=== PATIENT | female | born 1955 | race Caucasian/White ===

== ENCOUNTER 2018-01-06 08:42 | Emergency (ER) | payer OTHER ==
[~2018-01-06] VITALS: Ht 157.5 cm; Wt 92.1 kg
[2018-01-06 08:49] VITALS: BP 157/80
--- NOTE | 2018-01-06 08:55 | NUR ---
PATIENT TO BED #11
--- NOTE | 2018-01-06 08:55 | NUR ---
PATIENT PRESENTS TO ED WITH c/o left jaw/neck pain . PT STATES she has been experiencing pain for 2 days now and she feels pain when eating . DENIES N/V/D; SKIN IS PINK/WARM/DRY; AAOX4 WITH EVEN AND STEADY GAIT; LUNGS CLEAR BL; HR EVEN AND REGULAR; PT DENIES ANY FEVER, CP, SOB, OR COUGH AT THIS TIME; PATIENT STATES PAIN OF 5/10 AT THIS TIME; VSS; PATIENT POSITIONED FOR COMFORT; HOB ELEVATED; BEDRAILS UP X2; BED DOWN. ER MD MADE AWARE OF PT STATUS.
[2018-01-06] MEDS ORDERED: KETOROLAC 30 MG/ML VIAL IM ONE (09:20)
[2018-01-06 11:07] VITALS: BP 130/73
--- NOTE | 2018-01-06 11:07 | NUR ---
Patient discharged with v/s stable. Written and verbal after care instructions given and explained. Patient alert, oriented and verbalized understanding of instructions. Ambulatory with steady gait. All questions addressed prior to discharge. ID band removed. Patient advised to follow up with PMD. Rx of VOLTAREN XR given. Patient educated on indication of medication including possible reaction and side effects. Opportunity to ask questions provided and answered.
== END 2018-01-06 11:07 | disposition home or self-care (01) ==
LOC: MED 08:42
DX: K11.8 Other diseases of salivary glands (principal); Z90.710 Acquired absence of both cervix and uterus; Z88.0 Allergy status to penicillin
CPT/HCPCS: 76536; 96372; 99284; J1885; Q0092

== ENCOUNTER 2018-01-26 06:26 | Outpatient (CLI) | payer OTHER ==
[2018-01-26 08:15] LABS: ALBUMIN 3.3 g/dL (3.4-5.0); ANION GAP 12.4 (8-16); CARBON DIOXIDE 24.3 mmol/L (21-32); CHOL/HDL RATIO 3.1 (1-4.5); CREATININE 0.8 mg/dL (0.6-1.3); POTASSIUM 3.7 mmol/L (3.5-5.1); TOTAL BILIRUBIN 0.8 mg/dL (0.0-1.0)
[2018-01-26 08:17] LABS: EOSINOPHILS # (AUTO) 0.1 K/uL (0-0.4); MONOCYTES # (AUTO) 0.3 K/uL (0.8-1.0); MONOCYTES % (AUTO) 6.6 % (1.7-9.3); NEUTROPHILS # (AUTO) 2.8 K/uL (1.8-7.7); PLATELET COUNT (AUTO) 117 K/uL (140-450); WHITE BLOOD COUNT (AUTO) 4.4 K/uL (4.8-10.8)
[2018-01-26 08:35] LABS: BASOPHILS # (AUTO) 0.2 K/uL (0.00-0.22); BASOPHILS % (AUTO) 4.8 % (0.0-2.0); EOSINOPHILS % (AUTO) 1.6 % (0.0-4.0); HEMATOCRIT 43.1 % (36-48); HEMOGLOBIN 14.3 g/dL (12.0-16.0); MEAN CORPUSCULAR HEMOGLOBIN 31 pg (27-31); MEAN CORPUSCULAR HGB CONC 33 g/dL (33-37); MEAN CORPUSCULAR VOLUME 94 fL (80-94); RED BLOOD CELL COUNT(AUTO) 4.61 MIL/uL (4.20-5.40); RED CELL DISTRIBUTION WIDTH 12.9 % (11.6-13.7)
[2018-01-26 08:38] LABS: THYROID STIMULATING HORMONE 3.57 uIU/mL (0.34-3.74)
== END 2018-01-26 18:57 | disposition home or self-care (01) ==
LOC: MLB 06:26
PROVIDERS: ATTEND Internal Medicine Geriatric Medicine
DX: Z00.01 Encounter for general adult medical examination with abnormal findings (principal); R73.03 Prediabetes; E55.9 Vitamin D deficiency, unspecified
CPT/HCPCS: 36415; 80053; 82272; 82306; 83036; 84443; 85025

== ENCOUNTER 2018-02-09 06:23 | Outpatient (CLI) | payer OTHER | END 2018-02-09 20:17 | disposition home or self-care (01) | LOC: MRD 06:23 | PROVIDERS: ATTEND Internal Medicine Geriatric Medicine | DX: M85.88 Other specified disorders of bone density and structure, other site (principal); M12.88 Other specific arthropathies, not elsewhere classified, other specified site | CPT/HCPCS: 72110; 72170 ==

== ENCOUNTER 2019-06-04 06:10 | Emergency (ER) | payer OTHER ==
[~2019-06-04] VITALS: Ht 157.5 cm; Wt 90.7 kg
[2019-06-04 06:12] VITALS: BP 118/60
--- NOTE | 2019-06-04 06:30 | NUR ---
PT REPORTS TO ED WITH PAIN IN EAR AND CHEST X2 DAYS. NON PRODUCTIVE COUGH. ALLERGY TO PENICILLIN. BREATHING SYMETRICAL. DR ASSESSING PT AT BEDSIDE.
[2019-06-04] MEDS ORDERED: IBUPROFEN 600 MG TAB PO ONE (06:35)
[2019-06-04 06:42] VITALS: BP 118/60
--- NOTE | 2019-06-04 06:43 | NUR ---
Patient discharged with v/s stable. Written and verbal after care instructions given and explained. Patient alert, oriented and verbalized understanding of instructions. Ambulatory with steady gait. All questions addressed prior to discharge. ID band removed. Patient advised to follow up with PMD. Rx of DOXYCYCLINE & TESSALON PERLES given. Patient educated on indication of medication including possible reaction and side effects. Opportunity to ask questions provided and answered.
== END 2019-06-04 06:42 | disposition home or self-care (01) ==
LOC: MED 06:10
DX: H66.91 Otitis media, unspecified, right ear (principal); J06.9 Acute upper respiratory infection, unspecified; Z88.0 Allergy status to penicillin
CPT/HCPCS: 99283

== ENCOUNTER 2021-06-21 06:44 | Emergency (ER) | payer OTHER ==
[~2021-06-21] VITALS: Ht 157.5 cm; Wt 90.7 kg
[2021-06-21 06:47] VITALS: BP 120/53
--- NOTE | 2021-06-21 06:53 | NUR ---
to bed 7 ambulatory
[2021-06-21] MEDS ORDERED: KETOROLAC 60 MG/2 ML VIAL IM ONE (06:55)
--- NOTE | 2021-06-21 06:55 | NUR ---
65/f c/o left foot pain x1yr but has gotten worse right foot starting to feel same way too. pt rates 10/10 pain. pt reports back and r hip pain as well. ibuprofen taken yesterday with no relief. pmh denies allergies: penicillins
--- NOTE | 2021-06-21 06:58 | NUR ---
Dr. Hodges examining patient.
--- NOTE | 2021-06-21 07:15 | NUR ---
xray at bedside
[2021-06-21] MEDS ORDERED: ACET-8386 PO (07:22)
[2021-06-21] MEDS ORDERED: IBUP-2213 PO (07:22)
--- NOTE | 2021-06-21 07:25 | NUR ---
report given to rios juares for continuity of care
[2021-06-21 08:43] VITALS: BP 120/53
--- NOTE | 2021-06-21 08:44 | NUR ---
Patient discharged with v/s stable. Written and verbal after care instructions about foot pain, heel spur given and explained. Patient alert, oriented and verbalized understanding of instructions. Ambulatory with steady gait. All questions addressed prior to discharge. ID band removed. Patient advised to follow up with PMD. Rx of norco, ibuprofen given. Patient educated on indication of medication including possible reaction and side effects. Opportunity to ask questions provided and answered.
== END 2021-06-21 08:44 | disposition home or self-care (01) ==
LOC: MED 06:44
DX: M77.30 Calcaneal spur, unspecified foot (principal); Z88.0 Allergy status to penicillin
CPT/HCPCS: 73630; 96372; 99283; J1885; 81002; 81025

== ENCOUNTER 2021-07-02 08:29 | Outpatient (CLI) | payer OTHER ==
[~2021-07-02 08:29] MED LIST: ACET-8386 PO; IBUP-2213 PO
[2021-07-02 09:25] LABS: BASOPHILS % (AUTO) 0.6 % (0.0-2.0); EOSINOPHILS # (AUTO) 0.1 K/uL (0-0.4); EOSINOPHILS % (AUTO) 1.6 % (0.0-4.0); HEMATOCRIT 39.5 % (36-48); HEMOGLOBIN 13.7 g/dL (12.0-16.0); LYMPHOCYTES % (AUTO) 31.5 % (20.5-51.1); MEAN CORPUSCULAR HEMOGLOBIN 33 pg (27-31); MEAN CORPUSCULAR HGB CONC 35 g/dL (33-37); MONOCYTES # (AUTO) 0.3 K/uL (0.8-1.0); NEUTROPHILS # (AUTO) 1.9 K/uL (1.8-7.7); NEUTROPHILS % (AUTO) 58.3 % (42.2-75.2); PLATELET COUNT (AUTO) 87 K/uL (140-450); WHITE BLOOD COUNT (AUTO) 3.2 K/uL (4.8-10.8)
[2021-07-02 10:01] LABS: ALBUMIN 3.3 g/dL (3.4-5.0); ANION GAP 8.9 (8-16); CARBON DIOXIDE 23.6 mmol/L (21-32); CREATININE 0.8 mg/dL (0.6-1.3); POTASSIUM 3.5 mmol/L (3.5-5.1); THYROID STIMULATING HORMONE 3.4 uIU/mL (0.34-3.74); TOTAL BILIRUBIN 0.9 mg/dL (0.0-1.0)
[2021-07-03 19:59] LABS: ANTI-NUCLEAR ANTIBODY,DIRECT Negative (Negative)
== END 2021-07-02 19:31 | disposition home or self-care (01) ==
LOC: MLB 08:29
PROVIDERS: ATTEND Internal Medicine Geriatric Medicine
DX: Z00.00 Encounter for general adult medical examination without abnormal findings (principal)
CPT/HCPCS: 36415; 80053; 82306; 83036; 84443; 85025; 85651; 86038; 86140; 86430

== ENCOUNTER 2022-02-01 05:55 | Outpatient (CLI) | payer OTHER ==
[2022-02-01 07:58] LABS: BASOPHILS % (AUTO) 0.7 % (0.0-2.0); EOSINOPHILS # (AUTO) 0.1 K/uL (0-0.4); EOSINOPHILS % (AUTO) 1.8 % (0.0-4.0); HEMATOCRIT 39.5 % (36-48); HEMOGLOBIN 13.8 g/dL (12.0-16.0); LYMPHOCYTES # (AUTO) 1.1 K/uL (2.5-16.5); LYMPHOCYTES % (AUTO) 28.3 % (20.5-51.1); MEAN CORPUSCULAR HEMOGLOBIN 32 pg (27-31); MEAN CORPUSCULAR HGB CONC 35 g/dL (33-37); MONOCYTES # (AUTO) 0.3 K/uL (0.8-1.0); MONOCYTES % (AUTO) 7.8 % (1.7-9.3); NEUTROPHILS # (AUTO) 2.4 K/uL (1.8-7.7); NEUTROPHILS % (AUTO) 61.4 % (42.2-75.2); PLATELET COUNT (AUTO) 124 K/uL (140-450); RED BLOOD CELL COUNT(AUTO) 4.29 MIL/uL (4.20-5.40); RED CELL DISTRIBUTION WIDTH 13.7 % (11.6-13.7); WHITE BLOOD COUNT (AUTO) 3.9 K/uL (4.8-10.8)
[2022-02-01 09:53] LABS: ANION GAP 10.6 (8-16); CARBON DIOXIDE 26.3 mmol/L (21-32); POTASSIUM 3.9 mmol/L (3.5-5.1)
[2022-02-01 09:54] LABS: ALBUMIN 3.2 g/dL (3.4-5.0); CREATININE 0.8 mg/dL (0.6-1.3); TOTAL BILIRUBIN 0.6 mg/dL (0.0-1.0)
[2022-02-01 09:55] LABS: CHOL/HDL RATIO 3.2 (1-4.5); THYROID STIMULATING HORMONE 3.68 uIU/mL (0.34-3.74)
== END 2022-02-01 20:01 | disposition home or self-care (01) ==
LOC: MLB 05:55
PROVIDERS: ATTEND Internal Medicine Geriatric Medicine
DX: Z00.00 Encounter for general adult medical examination without abnormal findings (principal); Z12.11 Encounter for screening for malignant neoplasm of colon
CPT/HCPCS: 36415; 80053; 83036; 84443; 85025

== ENCOUNTER 2022-04-22 06:32 | Emergency (ER) | payer OTHER ==
[~2022-04-22] VITALS: Ht 157.5 cm; Wt 93.0 kg
[2022-04-22 06:46] VITALS: BP 146/66
[2022-04-22] MEDS ORDERED: DEXAMETHASONE 10 MG/ML VIAL PO ONE (07:20)
[2022-04-22] MEDS ORDERED: PENI500T20 PO (07:20)
--- NOTE | 2022-04-22 07:35 | NUR ---
REPORT GIVEN TO GURJIT LOUIS.
--- NOTE | 2022-04-22 07:40 | NUR ---
RESP PANEL, AND STREP SWABS COLLECTED AND WALKED TO LAB
--- NOTE | 2022-04-22 10:58 | NUR ---
Patient discharged with v/s stable. Written and verbal after care instructions given and explained. Patient verbalized understanding. Ambulatory with steady gait. All questions addressed prior to discharge. Advised to follow up with PMD.
== END 2022-04-22 07:45 | disposition home or self-care (01) ==
LOC: MED 06:32
DX: J02.9 Acute pharyngitis, unspecified (principal); Z20.822 Contact with and (suspected) exposure to COVID-19; H92.09 Otalgia, unspecified ear; M79.10 Myalgia, unspecified site
CPT/HCPCS: 87081; 87635; 99283; J1100

== ENCOUNTER 2022-05-17 06:24 | Emergency (ER) | payer OTHER ==
[~2022-05-17] VITALS: Ht 157.5 cm; Wt 93.0 kg
[~2022-05-17 06:24] MED LIST changes: +PENI500T20 PO
[2022-05-17 06:32] VITALS: BP 135/74
--- NOTE | 2022-05-17 06:39 | NUR ---
SWABS COLLECTED AND TAKEN TO LAB.
[2022-05-17] MEDS ORDERED: ACET-10509 PO ×2 (06:46→07:00)
[2022-05-17] MEDS ORDERED: IBUP-2213 PO ×2 (06:46→07:00)
--- NOTE | 2022-05-17 06:46 | NUR ---
PT WENT TO LOBBY
[2022-05-17 07:00] VITALS: BP 135/74
== END 2022-05-17 07:00 | disposition home or self-care (01) ==
LOC: MED 06:24
DX: J06.9 Acute upper respiratory infection, unspecified (principal); Z20.822 Contact with and (suspected) exposure to COVID-19; Z88.0 Allergy status to penicillin; Z79.899 Other long term (current) drug therapy
CPT/HCPCS: 87426; 87635; 87804; 99283; C9803

== ENCOUNTER 2022-07-01 06:16 | Outpatient (CLI) | payer OTHER ==
[~2022-07-01 06:16] MED LIST changes: +ACET-10509 PO
[2022-07-01 06:44] LABS: BASOPHILS % (AUTO) 0.7 % (0.0-2.0); EOSINOPHILS # (AUTO) 0.1 K/uL (0-0.4); EOSINOPHILS % (AUTO) 2.6 % (0.0-4.0); HEMATOCRIT 39.5 % (36-48); HEMOGLOBIN 13.5 g/dL (12.0-16.0); LYMPHOCYTES % (AUTO) 32.7 % (20.5-51.1); MEAN CORPUSCULAR HEMOGLOBIN 31 pg (27-31); MEAN CORPUSCULAR HGB CONC 34 g/dL (33-37); MEAN CORPUSCULAR VOLUME 92.3 fL (80-94); MONOCYTES # (AUTO) 0.2 K/uL (0.8-1.0); MONOCYTES % (AUTO) 7.4 % (1.7-9.3); NEUTROPHILS # (AUTO) 1.7 K/uL (1.8-7.7); NEUTROPHILS % (AUTO) 56.6 % (42.2-75.2); PLATELET COUNT (AUTO) 93 K/uL (140-450); RED BLOOD CELL COUNT(AUTO) 4.28 MIL/uL (4.20-5.40); RED CELL DISTRIBUTION WIDTH 14.3 % (11.6-13.7); WHITE BLOOD COUNT (AUTO) 2.9 K/uL (4.8-10.8)
[2022-07-01 08:09] LABS: ALBUMIN 3.1 g/dL (3.4-5.0); CARBON DIOXIDE 22.2 mmol/L (21-32); CHOL/HDL RATIO 2.5 (1-4.5); CREATININE 0.8 mg/dL (0.6-1.3); TOTAL BILIRUBIN 0.8 mg/dL (0.0-1.0)
[2022-07-01 08:20] LABS: POTASSIUM 3.9 mmol/L (3.5-5.1)
== END 2022-07-01 20:02 | disposition home or self-care (01) ==
LOC: MLB 06:16
PROVIDERS: ATTEND Internal Medicine Geriatric Medicine
DX: D69.6 Thrombocytopenia, unspecified (principal)
CPT/HCPCS: 36415; 80053; 82306; 83036; 85025

== ENCOUNTER 2022-09-28 06:50 | Outpatient (CLI) | payer OTHER ==
[2022-09-28 08:06] LABS: BASOPHILS % (AUTO) 0.9 % (0.0-2.0); EOSINOPHILS # (AUTO) 0.1 K/uL (0-0.4); HEMATOCRIT 41.2 % (36-48); HEMOGLOBIN 14.3 g/dL (12.0-16.0); LYMPHOCYTES # (AUTO) 1.1 K/uL (2.5-16.5); LYMPHOCYTES % (AUTO) 28.2 % (20.5-51.1); MEAN CORPUSCULAR HEMOGLOBIN 32 pg (27-31); MEAN CORPUSCULAR HGB CONC 35 g/dL (33-37); MEAN CORPUSCULAR VOLUME 92.3 fL (80-94); MONOCYTES # (AUTO) 0.3 K/uL (0.8-1.0); NEUTROPHILS # (AUTO) 2.4 K/uL (1.8-7.7); NEUTROPHILS % (AUTO) 61.9 % (42.2-75.2); PLATELET COUNT (AUTO) 106 K/uL (140-450); RED BLOOD CELL COUNT(AUTO) 4.46 MIL/uL (4.20-5.40); RED CELL DISTRIBUTION WIDTH 13.9 % (11.6-13.7); WHITE BLOOD COUNT (AUTO) 3.9 K/uL (4.8-10.8)
[2022-09-28 08:54] LABS: ALBUMIN 3.3 g/dL (3.4-5.0); ANION GAP 13.9 (8-16); CARBON DIOXIDE 25.9 mmol/L (21-32); CREATININE 0.7 mg/dL (0.6-1.3); POTASSIUM 3.8 mmol/L (3.5-5.1); TOTAL BILIRUBIN 0.6 mg/dL (0.0-1.0)
== END 2022-09-28 22:42 | disposition home or self-care (01) ==
LOC: MLB 06:50
PROVIDERS: ATTEND Dermatology
DX: L00-L99 Diseases of the skin and subcutaneous tissue (principal); L66.9 Cicatricial alopecia, unspecified
CPT/HCPCS: 36415; 80053; 85025; 86038

== ENCOUNTER 2023-08-12 06:10 | Outpatient (CLI) | payer OTHER ==
[~2023-08-12 06:10] MED LIST changes: -ACET-8386 PO; +ACET-8905 PO
[2023-08-12 07:21] LABS: BASOPHILS % (AUTO) 0.5 % (0.0-2.0); EOSINOPHILS # (AUTO) 0.1 K/uL (0-0.4); EOSINOPHILS % (AUTO) 2.1 % (0.0-4.0); HEMOGLOBIN 13.7 g/dL (12.0-16.0); LYMPHOCYTES # (AUTO) 0.9 K/uL (2.5-16.5); LYMPHOCYTES % (AUTO) 29.4 % (20.5-51.1); MEAN CORPUSCULAR HEMOGLOBIN 32 pg (27-31); MEAN CORPUSCULAR HGB CONC 34 g/dL (33-37); MEAN CORPUSCULAR VOLUME 92.2 fL (80-94); MONOCYTES # (AUTO) 0.2 K/uL (0.8-1.0); MONOCYTES % (AUTO) 7.8 % (1.7-9.3); NEUTROPHILS # (AUTO) 1.8 K/uL (1.8-7.7); NEUTROPHILS % (AUTO) 60.2 % (42.2-75.2); PLATELET COUNT (AUTO) 87 K/uL (140-450); RED BLOOD CELL COUNT(AUTO) 4.34 MIL/uL (4.20-5.40); RED CELL DISTRIBUTION WIDTH 14.1 % (11.6-13.7); WHITE BLOOD COUNT (AUTO) 3.1 K/uL (4.8-10.8)
[2023-08-12 07:53] LABS: ALBUMIN 3.3 g/dL (3.4-5.0); ANION GAP 12.4 (8-16); CALCIUM 8.4 mg/dL (8.5-10.1); CARBON DIOXIDE 25.6 mmol/L (21-32); CHOL/HDL RATIO 2.7 (1-4.5); CREATININE 0.8 mg/dL (0.6-1.3); THYROID STIMULATING HORMONE 3.62 uIU/mL (0.34-3.74); TOTAL BILIRUBIN 0.7 mg/dL (0.0-1.0); TOTAL PROTEIN, SERUM 7.2 g/dL (6.4-8.2)
[2023-08-13 09:06] LABS: ANTI-NUCLEAR ANTIBODY,DIRECT Negative (Negative); HEMOGLOBIN A1C 5.3 % (4.8-5.6)
== END 2023-08-12 20:01 | disposition home or self-care (01) ==
LOC: MLB 06:10
PROVIDERS: ATTEND Internal Medicine Geriatric Medicine
DX: Z00.00 Encounter for general adult medical examination without abnormal findings (principal); R53.82 Chronic fatigue, unspecified
CPT/HCPCS: 36415; 80053; 82306; 83036; 84443; 85025; 86038

== ENCOUNTER 2024-01-09 08:33 | Outpatient (CLI) | payer OTHER | END 2024-01-09 20:33 | disposition home or self-care (01) | LOC: MRD 08:33 | DX: M25.78 Osteophyte, vertebrae (principal); M54.50 Low back pain, unspecified | CPT/HCPCS: 72100 ==

== ENCOUNTER 2024-01-16 06:39 | Outpatient (CLI) | payer OTHER ==
[2024-01-16 07:32] LABS: BASOPHILS % (AUTO) 0.6 % (0.0-2.0); EOSINOPHILS # (AUTO) 0.1 K/uL (0-0.4); EOSINOPHILS % (AUTO) 1.9 % (0.0-4.0); HEMATOCRIT 39.4 % (36-48); HEMOGLOBIN 13.8 g/dL (12.0-16.0); LYMPHOCYTES # (AUTO) 1.1 K/uL (2.5-16.5); LYMPHOCYTES % (AUTO) 27.7 % (20.5-51.1); MEAN CORPUSCULAR HEMOGLOBIN 32 pg (27-31); MEAN CORPUSCULAR HGB CONC 35 g/dL (33-37); MEAN CORPUSCULAR VOLUME 92.4 fL (80-94); MONOCYTES # (AUTO) 0.3 K/uL (0.8-1.0); MONOCYTES % (AUTO) 7.9 % (1.7-9.3); NEUTROPHILS # (AUTO) 2.4 K/uL (1.8-7.7); NEUTROPHILS % (AUTO) 61.9 % (42.2-75.2); PLATELET COUNT (AUTO) 93 K/uL (140-450); RED BLOOD CELL COUNT(AUTO) 4.26 MIL/uL (4.20-5.40); RED CELL DISTRIBUTION WIDTH 13.8 % (11.6-13.7); WHITE BLOOD COUNT (AUTO) 3.8 K/uL (4.8-10.8)
[2024-01-16 08:31] LABS: ANION GAP 11.1 (8-16); CARBON DIOXIDE 24.5 mmol/L (21-32); CHOL/HDL RATIO 2.9 (1-4.5); CREATININE 0.7 mg/dL (0.6-1.3); FREE T4 (FREE THYROXINE) 0.96 ng/dL (0.76-1.46); POTASSIUM 3.6 mmol/L (3.5-5.1); THYROID STIMULATING HORMONE 2.96 uIU/mL (0.34-3.74); TOTAL PROTEIN, SERUM 7.9 g/dL (6.4-8.2)
[2024-01-17 08:08] LABS: ANTI-NUCLEAR ANTIBODY,DIRECT Negative (Negative); HEMOGLOBIN A1C 5.1 % (4.8-5.6); T4 (THYROXINE) 7.2 ug/dL (4.5-12.0); TRIIODOTHYRONINE 136 ng/dL (71-180)
[2024-01-17 11:46] LABS: VITAMIN D, 25-HYDROXY 8.5 ng/mL (30.0-100.0)
== END 2024-01-16 20:10 | disposition home or self-care (01) ==
LOC: MLB 06:39
DX: Z13.220 Encounter for screening for lipoid disorders (principal); Z13.9 Encounter for screening, unspecified; Z13.1 Encounter for screening for diabetes mellitus; E55.9 Vitamin D deficiency, unspecified; R76.0 Raised antibody titer; R79.82 Elevated C-reactive protein (CRP); R94.6 Abnormal results of thyroid function studies
CPT/HCPCS: 36415; 80053; 82306; 83036; 84436; 84439; 84443; 84480; 85025; 85651; 86038; 86140

== ENCOUNTER 2024-02-17 07:15 | Outpatient (CLI) | payer OTHER | END 2024-02-17 23:59 | disposition home or self-care (01) | LOC: MCT 07:15 | DX: J32.0 Chronic maxillary sinusitis (principal); G91.9 Hydrocephalus, unspecified; G23.8 Other specified degenerative diseases of basal ganglia | CPT/HCPCS: 70450 ==

== ENCOUNTER 2024-06-20 06:31 | Outpatient (CLI) | payer OTHER ==
[2024-06-20 06:50] LABS: BASOPHILS % (AUTO) 0.5 % (0.0-2.0); EOSINOPHILS % (AUTO) 1.3 % (0.0-4.0); HEMATOCRIT 38.4 % (36-48); HEMOGLOBIN 13.3 g/dL (12.0-16.0); LYMPHOCYTES # (AUTO) 0.6 K/uL (2.5-16.5); LYMPHOCYTES % (AUTO) 16.7 % (20.5-51.1); MEAN CORPUSCULAR HEMOGLOBIN 32 pg (27-31); MEAN CORPUSCULAR HGB CONC 35 g/dL (33-37); MEAN CORPUSCULAR VOLUME 92.8 fL (80-94); MONOCYTES # (AUTO) 0.3 K/uL (0.8-1.0); NEUTROPHILS # (AUTO) 2.8 K/uL (1.8-7.7); NEUTROPHILS % (AUTO) 74.5 % (42.2-75.2); RED BLOOD CELL COUNT(AUTO) 4.14 MIL/uL (4.20-5.40); WHITE BLOOD COUNT (AUTO) 3.8 K/uL (4.8-10.8)
[2024-06-20 07:25] LABS: PLATELET COUNT (AUTO) 81 K/uL (140-450)
[2024-06-20 07:57] LABS: ALBUMIN 3.1 g/dL (3.4-5.0); CALCIUM 8.4 mg/dL (8.5-10.1); CREATININE 0.9 mg/dL (0.6-1.3); TOTAL BILIRUBIN 0.8 mg/dL (0.0-1.0)
[2024-06-21 12:01] LABS: CHOL/HDL RATIO 2.8 (1-4.5)
== END 2024-06-20 21:52 | disposition home or self-care (01) ==
LOC: MLB 06:31
DX: Z13.29 Encounter for screening for other suspected endocrine disorder (principal); Z13.9 Encounter for screening, unspecified; Z13.220 Encounter for screening for lipoid disorders; Z13.1 Encounter for screening for diabetes mellitus; R79.82 Elevated C-reactive protein (CRP); D72.810 Lymphocytopenia
CPT/HCPCS: 36415; 80053; 82306; 85025

== ENCOUNTER 2024-07-11 06:32 | Outpatient (CLI) | payer OTHER | END 2024-07-11 19:51 | disposition home or self-care (01) | LOC: MLB 06:32 | DX: M77.31 Calcaneal spur, right foot (principal); M79.671 Pain in right foot; M25.511 Pain in right shoulder | CPT/HCPCS: 73030; 73650 ==